=== PATIENT | female | born 1975 | race Caucasian/White ===

== ENCOUNTER 2019-01-08 11:24 | Day surgery (SDC) | payer OTHER ==
[2019-01-08] MEDS ORDERED: ceFAZolin 2 GM/DEXTROSE 100 ML IV ONE (11:55)
--- NOTE | 2019-01-08 11:55 | PDHPUP ---
History & Physical Update H&P update statement: This history and physical update is based on an assessment of the patient which was completed after admission or registration (within 24 hours), but prior to the surgery/procedure. H&P update: H&P reviewed & patient examined, no change in patient's condition since H&P completed
[2019-01-08] MEDS ORDERED: BUPIVACAINE 0.25% 30 ML SDV ONE (12:20)
[2019-01-08] MEDS ORDERED: BUPIVACAINE/EPI 0.25% 30 ML SDV ONE (12:20)
[2019-01-08] MEDS ORDERED: BACITRACIN 50,000 UNITS/10 ML SYR IRR ONE (12:20)
--- NOTE | 2019-01-08 12:45 | PDANEPAE ---
ANE History of Present Illness 43 year old with bunion right side ANE Past Medical History - Cardiovascular History Hx Hypertension: No Hx Arrhythmias: Yes Hx Chest Pain: No Hx Coronary Artery / Peripheral Vascular Disease: No Hx CHF / Valvular Disease: No Hx Palpitations: No Cardiovascular History Comment: has been told she has a murmur but some docs can 't hear it - Pulmonary History Hx COPD: No Hx Asthma/Reactive Airway Disease: No Hx Recent Upper Respiratory Infection: No Hx Oxygen in Use at Home: No Hx Sleep Apnea: No Sleep Apnea Screening Result - Last Documented: Negative - Neurologic History Hx Cerebrovascular Accident: No Hx Seizures: No Hx Dementia: No Neurologic History Comment: dystonia - Endocrine History Hx Diabetes: No Endocrine History Comment: hypothyroidism - Renal History Hx Renal Disorders: No - Liver History Hx Hepatic Disorders: No - Neurological & Psychiatric Hx Hx Neurological and Psychiatric Disorders: No - Cancer History Hx Cancer: Yes Cancer History Comment: 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 1984 addenoidectomy. 1999 tonsillectomy. wisdom teeth extraction ANE Review of Systems Review of systems is: negative Review of Systems: - Exercise capacity METS (RN): 5 METS ANE Patient History - Allergies Allergies/Adverse Reactions: No Known Allergies Allergy (Verified 01/05/19 17:55) - Home Medications Home Medications: Synthroid 01/05/19 [Last Taken 01/08/19] - NPO status NPO Since - Liquids (Date): 01/08/19 NPO Since - Liquids (Time): 09:30 NPO Since - Solids (Date): 01/07/19 NPO Since - Solids (Time): 21:00 - Anes Hx Anes Hx: no prior problems - Smoking Hx Smoking Status: Never smoked - Family Anes Hx Family Hx Anesthesia Complications: none ANE Labs/Vital Signs - Vital Signs Blood Pressure: 150/108 Heart Rate: 74 Respiratory Rate: 16 O2 Sat (%): 98 Height: 157.48 cm Weight: 52.617 kg ANE Physical Exam - Airway Neck exam: FROM Mallampati Score: Class 1 Mouth exam: normal dental/mouth exam - Pulmonary Pulmonary: no respiratory distress - Cardiovascular Cardiovascular: regular rate and rhythym - ASA Status ASA Status: II ANE Anesthesia Plan Anesthesia Plan: MAC
[2019-01-08] MEDS ORDERED: fentaNYL 100 MCG/2 ML INJ ONE (13:01)
[2019-01-08] MEDS ORDERED: PROPOFOL/EMULSION 500 MG/50 ML BOTTLE IV ONE ×2 (13:01→14:56)
[2019-01-08] MEDS ORDERED: PROPOFOL 200 MG/20 ML VIAL ONE (14:56)
[2019-01-08] MEDS ORDERED: NALOXONE HCL 0.4 MG/ML INJ IVP PRN (15:34)
[2019-01-08] MEDS ORDERED: HYDROCODONE/APAP 5/325 TAB PO PRN (15:34)
[2019-01-08] MEDS ORDERED: fentaNYL 100 MCG/2 ML INJ IVP PRN (15:34)
[2019-01-08] MEDS ORDERED: ONDANSETRON 4 MG/2 ML VIAL IVP PRN (15:34)
[2019-01-08] MEDS ORDERED: oxyCODONE IR 5 MG TAB PO PRN (15:34)
[2019-01-08] MEDS ORDERED: PROMETHAZINE HCL 25 MG/ML INJ IVP PRN (15:34)
--- NOTE | 2019-01-08 15:36 | POSTANESTH ---
Post Anesthetic Evaluation Cardiovascular Status: Normal, Stable Respiratory Status: Normal, Stable Level of Consciousness/Mental Status: Can Participate in Eval Pain Control: Adequate, Prn Tx Ordered Nausea/Vomiting Control: Adequate, Prn Tx Ordered Complications Possibly Related to Anesthesia: None Noted
--- NOTE | 2019-01-08 15:41 | POSTOPPROG ---
Post Op Note Date of Operation: 01/08/19 Surgeon: Tre Horn Finisher Plate: none Anesthesiologist: warm Anesthesia: IV Sedation Pre-op Diagnosis: right bunion Post-op Diagnosis: same Indication: pain Procedure: 1st met cuneifrom fusion and modified oakes Findings: none Inf/Abcess present in the surg proc area at time of surgery?: No Depth: Superfical (Skin SQ) EBL: Minimal Total fluids administered: 20cc 9/1 .25% marcaine plain and with epi Complications: none Bowel Protocol: No Clean Closure Performed: Yes
[2019-01-08] MEDS ORDERED: ACETAMINOPHEN 325 MG TAB ONE (16:14)
[2019-01-08 16:53] VITALS: BP 118/71
--- NOTE | 2019-01-09 12:12 | GOP ---
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 ANESTHESIA: Local with MAC. ANESTHESIOLOGIST: Dr. Nolasco. PREOPERATIVE DIAGNOSIS: 1. Instability right 1st metatarsocuneiform joint and intercuneiform joint. 2. Hallux abductovalgus, right. POSTOPERATIVE DIAGNOSIS: 1. Instability right 1st metatarsocuneiform joint and intercuneiform joint. 2. Hallux abductovalgus, right. PROCEDURE PERFORMED: 1. Right 1st metatarsophalangeal joint fusion and intercuneiform joint fusion. 2. Modified Jain bunionectomy, right. 3. Allograft implantation, right. FINDINGS: ESTIMATED BLOOD LOSS: Minimal. DESCRIPTION OF PROCEDURE: The patient presented to [facility] and was cleared for the intended procedure. Patient was taken to the operating room and placed stable in the supine position . IV sedation was started per the anesthesia department. Foot was anesthetized in an infiltrative n erve block fashion. Foot was prepped, scrubbed, and draped in usual sterile fashion. Following exsa nguination by elevation and Esmarch bandage, pneumatic ankle tourniquet was inflated to 225 mmHg. At this time, attention was directed to the dorsomedial aspect of the right 1st metatarsocuneiform join t where a linear incision was started, moving distally before curving toward the dorsal aspect medial to the extensor hallucis longus tendon and carried over the level of the metatarsophalangeal joint. This incision was carried deep utilizing sharp blunt dissection, making sure that all neurovascular structures were identified and retracted at this time. All superficial bleeders were cauterized. Th e incision was carried down deep to the level of the metatarsophalangeal joint. At this time, attent ion was redirected into the 1st intermetatarsal space where again, utilizing sharp blunt dissection w as carried down to the level of the adductor tendon. The adductor tendon was sharply released from i ts insertion at the base of the proximal phalanx and tagged for potential later transfer, though late r was sectioned and removed. Upon completion of the lateral release, an inverted L capsulotomy was p erformed. Capsular tissues were dissected free medially and laterally to allow for adequate exposure to the head of the metatarsal. At this time, utilizing a sagittal saw, the hypertrophied medial maya nence was resected and the area smoothed with a power bur. The sesamoids were noted to be not moving as freely as desired, so a McGlamry elevator was introduced and the sesamoidal apparatus was freed u p appropriately. Improvement in range of motion was then identified. The area was flushed with copi ous amounts of sterile saline at this time. Upon completion of this, C-arm fluoroscopy continued to show a large intermetatarsal angle with excessive motion at the metatarsocuneiform and intercuneiform joint. It was decided that a fusion of those joints would be performed. Dissection was carried lenin n deep at the level of the metatarsocuneiform joint, again, utilizing sharp blunt dissection, down to the level of the joint capsule, this was sharply incised and dissected free medially and laterally t o allow for adequate exposure to the metatarsocuneiform joint. At this time, the [place] guide was p laced into the joint appropriately. This was the 8-degree guide, and the sagittal saw was introduced into the guide cuts. The guide was then removed and the cartilage from both sides of the effusion s ite was dissected free and removed. The remaining metatarsal and medial cuneiform were then drilled subchondrally to encourage better potential fusion of the site. The metatarsal then had a K-wire dri halina from medial to lateral in the base, tacked as a joystick, it allowed me the ability to transpose the metatarsal laterally as well as derotating the valgus component of the metatarsal. Upon completi on of this and confirming adequate alignment by C-arm fluoroscopy, the area was held temporarily with the K-wire fixation. The joystick was then removed and the area was measured as an Arthrex short pl cam fusion plate. This was temporarily placed onto the site with BB-Taks, making sure to leave the anterior tibial tendon intact. Upon bending the plate appropriately to the contours, the 2 most dis agnieszka screws were drilled 1st. These were then placed as Arthrex 3.5 locking screws, each by 14 mm. T he compression screw was then drilled across the fusion site and ultimately a 3.5 cortical screw by 2 6 mm was introduced before complete compression was obtained. The temporary K-wires and BB-Taks were removed and good compression was obtained. There were some areas of gapping in the bone which were then filled with the AlloSync DBM gel, 1 cc was placed into the area before final compression was obt ained. The 2 most proximal screws were then placed, 1 was an Arthrex 3.5 locking screw by 30 mm whic h was placed into the medial cuneiform for added stability to the site. The other was an Arthrex 3.5 cortical screw by 20 mm. Upon completion of this construct, C-arm fluoroscopy showed excellent redu ction of the intermetatarsal angle with a good sesamoid position. It was decided, though, that with the potential of early weightbearing, I did not want to have any dorsal separation and I decided to p lace an Arthrex 4.0 cannulated screw across the site as well. The orientation of this screw was from dorsal distal to plantar proximal into the intermediate cuneiform. The cannulated screw was 34 mm i n length. Excellent compression was obtained at this time. The area was flushed a final time with c opious amounts of sterile saline before C-arm fluoroscopy showed rectus alignment of the joint, and i t was decided that an Shyam osteotomy was not necessary. Capsules over both joints were then closed w ith 2-0 and 3-0 Vicryl. The area then had a 4 x 8 cm tissue allograft placed over the area to act as an adhesion barrier and facilitate better healing without scar tissue formation. This was closed ov er subcutaneously with 5-0 Vicryl followed by skin closure with 5-0 nylon. The area was dressed with Betadine-soaked Adaptics, 4 x 4's, Nataliia, and Coban. The patient had the pneumatic ankle tourniquet released for a total tourniquet time of 114 minutes before she was placed into a posterior splint. She was then taken to the recovery room with vital signs stable and vascular supply intact digits 1 t hrough 5 bilaterally. PATHOLOGY: None. HEMOSTASIS: PAT at 225 mmHg by 114 minutes. MATERIALS: Arthrex 3.5 locking screws by 14, 14 and 30 mm, Arthrex 3.5 mm cortical screws by 20 and 26 mm, Arthrex short plantar Lapidus plate, Arthrex 4.0 cannulated screw by 34 mm, AlloSync DBM 1 cc, Vivex allograft 4 x 8 cm. INJECTABLES: 20 cc. 9:1 ratio, 0.25% Marcaine plain, 0.25% Marcaine with epi preoperatively. COMPLICATIONS: None. /[id number]/MODL
== END 2019-01-08 16:56 | disposition home or self-care (01) ==
LOC: FSGY 11:24
PROVIDERS: ATTEND Podiatrist Primary Podiatric Medicine
PROC: 0SGM04Z Fusion of Right Metatarsal-Phalangeal Joint with Internal Fixation Device, Open Approach (ICD-10-PCS; principal; 2019-01-08 12:30)
PROC: 0QBN0ZZ Excision of Right Metatarsal, Open Approach (ICD-10-PCS; principal; 2019-01-08 12:30)
DX: M20.11 Hallux valgus (acquired), right foot (principal); E03.9 Hypothyroidism, unspecified
CPT/HCPCS: C1713; C1762; C9399; J0690; J2704; J3010